=== PATIENT | male | born 1995 | race Caucasian/White ===

== ENCOUNTER 2020-06-23 12:35 | Emergency (ER) | payer BC, OTHER ==
[~2020-06-23] VITALS: Ht 182.9 cm; Wt 86.2 kg
[2020-06-23 12:35] VITALS: BP_SYST 154
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
--- NOTE | 2020-06-23 12:35 | NUR ---
BROUGHT IN BY [facility], PLACED IN ROOM #6, TRIAGED. REPORT GIVEN TO PERRY
--- NOTE | 2020-06-23 12:52 | NUR ---
ER Dr. Talavera at bedside examining patient.
[2020-06-23] MEDS ORDERED: KETOROLAC TROMETHAMINE 30 MG VIAL IM ONE (13:15)
[2020-06-23 14:50] VITALS: BP_SYST 136
--- NOTE | 2020-06-23 14:50 | NUR ---
Patient given written and verbal discharge instructions and verbalizes understanding. ER MD discussed with patient the results and treatment provided. Patient in stable condition. ID arm band removed. Rx given. Patient educated on pain management and to follow up with PMD. Pain Scale 2/10 Opportunity for questions provided and answered. Medication side effect fact sheet provided.
== END 2020-06-23 14:50 | disposition home or self-care (01) ==
LOC: EDUNIT# 12:35 → SED 12:35
DX: S39.012A Strain of muscle, fascia and tendon of lower back, initial encounter (principal); S80.02XA Contusion of left knee, initial encounter; V49.59XA Passenger injured in collision with other motor vehicles in traffic accident, initial encounter; Y93.89 Activity, other specified; Y92.413 State road as the place of occurrence of the external cause; Y99.8 Other external cause status
CPT/HCPCS: 71046; 73560; 73660; 96372; 99284; J1885